=== PATIENT | female | born 1985 | race Caucasian/White ===

== ENCOUNTER 2021-05-24 23:57 | Emergency (ER) | payer OTHER, SELFPAY ==
[2021-05-25 00:01] VITALS: BP 115/76; PULSE 102; RESP 20; TEMP 36.2; O2SAT 100
--- NOTE | 2021-05-25 00:07 | ED.GENADULT ---
HPI - General Adult General Chief complaint: OB/Uterine Contractions Stated complaint: 3 months and bleeding Time Seen by Provider: 05/25/21 00:03 Source: patient Mode of arrival: ambulatory Limitations: no limitations History of Present Illness HPI narrative: eTresa is a 36 at approximately 3 months gestation (thinks LMP was February but is unsure) with a PMH of amphetamine abuse that presents with vaginal bleeding. It started and hour before coming in and is associated with abdominal cramping. She denies any diarrhea, vomiting, CP, SOB fevers or chills. Related Data Home Medications Medication Instructions Recorded Confirmed No Home Medications 05/25/21 05/25/21 Allergies Allergy/AdvReac Type Severity Reaction Status Date / Time No Known Allergies Allergy Verified 05/25/21 00:07 Review of Systems Constitutional: Constitutional: Reports no additional constitutional complaints Eyes: Eyes: Reports no additional eye complaints ENT: Reports system reviewed and no additional complaints, except as documented Cardiovascular: Cardiovascular: Reports no additional cardiovascular complaints Respiratory: Respiratory: Reports no additional respiratory complaints Gastrointestinal: Gastrointestinal: Reports no additional gastrointestinal complaints Genitourinary: Genitourinary: Reports no additional female genitourinary complaints Musculoskeletal: Musculoskeletal: Reports no additional musculoskeletal complaints Integumentary/Breasts: Skin/Breast: Reports system reviewed and no additional complaints, except as docu Neurologic: Reports system reviewed and no additional complaints, except as documented Psychiatric: Psychiatric: Reports no additional psychiatric complaints Endocrine: Endocrine: Reports no additional endocrine complaints Hematologic/Lymphatic: Hematologic/Lymphatic: Reports no additional hematologic/lymphatic complaints Allergic/Immunologic: Allergic/Immunologic: Reports no additional allergic/immunologic complaints Exam Const: General: no acute distress and alert Orientation/consciousness: patient oriented x3 Limitations: No altered mental status HENMT: Head: normal to inspection Other: atraumatic Eyes: Conjunctivae: conjunctivae normal Pupils: Equal, round and reactive pupils present Neck: Neck: normal visual inspection Chest: Chest palpation & inspection: normal inspection of the chest Resp: Effort & Inspection: normal respiratory effort Auscultation: clear to auscultation bilaterally Cardio: Rate: regular rate Rhythm: regular rhythm GI: Inspection: non-distended GI Palp: Yes Soft to palpation, No Tenderness to palpation present (GI) and No Guarding due to palpation present (GI) : General: Yes no CVA tenderness External Female Exam: normal external appearance Speculum Exam - Vagina: normal appearance of the vagina Speculum Exam - Cervix: Cervical os open (bleeding from within the uterus) and Other cervical findings present (copious amounts of blood in the vaginal vault ) Skin: General skin exam: normal color Rashes: no rashes Neuro: General: patient oriented x3, moves all extremities and no meningeal signs Extrem: General: normal to inspection Psych: Appearance: grossly normal Mental Status: mental status grossly normal Course Vital Signs Vital signs: Vital Signs Temperature 97.1 F L 05/25/21 00:01 Pulse Rate 102 H 05/25/21 00:01 Respiratory Rate 20 05/25/21 00:01 Blood Pressure 115/76 05/25/21 00:01 Pulse Oximetry 100 05/25/21 00:01 Temperature 97.1 F L 05/25/21 00:01 Pulse Rate 102 H 05/25/21 00:01 Respiratory Rate 20 05/25/21 00:01 Blood Pressure 115/76 05/25/21 00:01 Pulse Oximetry 100 05/25/21 00:01 Medical Decision Making Vital Signs Vital Signs: Vital Signs Temperature 97.1 F L 05/25/21 00:01 Pulse Rate 102 H 05/25/21 00:01 Respiratory Rate 05/25/21 00:01 Blood Pressure 115/76 05/25/21
--- NOTE | 2021-05-25 00:35 | PC.NURSE ---
Pt assisted to position for vaginal exam and collection of vaginal specimens. This RN in room c ERP Dr Perry at time of exam and assisted c collection of specimens. Pt shana procedure well.
[2021-05-25 00:43] LABS: Basophils Absolute Auto 0.06 K/mm3 (0.00-0.10); Basophils Percent Auto 0.7 % (0.0-1.0); Eosinophils Absolute Auto 0.21 K/mm3 (0.02-0.50); Eosinophils Percent Auto 2.6 % (1.0-6.0); Hematocrit 34.1 % (35.0-49.0); Immature Granulocyte Absolute 0.02 K/mm3 (0.00-0.00); Immature Granulocyte Percent A 0.2 % (0.0-0.0); Lymphocytes Percent Auto 29.6 % (18.0-42.0); Mean Corpuscular HGB Conc 35.2 g/dL (32.0-36.0); Mean Corpuscular Hemoglobin 30.8 pg (27.0-31.0); Mean Corpuscular Volume 87.7 fL (78.0-102.0); Mean Platelet Volume 8.8 fl (9.2-11.8); Monocytes Absolute Auto 0.55 K/mm3 (0.10-0.90); Monocytes Percent Auto 6.8 % (2.0-11.0); Neutrophils Absolute Auto 4.9 K/mm3 (1.7-7.2); Neutrophils Percent Auto 60.1 % (50.0-70.0); Platelet Count Result 278 K/mm3 (150-420); Red Blood Count 3.89 M/mm3 (4.20-5.40); White Blood Count 8.1 K/mm3 (4.8-10.8)
[2021-05-25 00:56] LABS: Prothrombin Time 10.4 Seconds (9.50-12.10)
[2021-05-25 01:00] LABS: Alanine Aminotransferase 26 U/L (14-59); Albumin Level 3.5 g/dL (3.4-5.0); Alkaline Phosphatase 70 U/L (46-116); Anion Gap 11 mmol/L (8-16); Aspartate Amino Transferase 13 U/L (15-37); Bilirubin,Total 0.2 mg/dL (0.00-1.00); Blood Urea Nitrogen 8 mg/dL (7-18); Calcium 9.1 mg/dL (8.5-10.1); Carbon Dioxide 26 mmol/L (21-32); Chloride 99 mmol/L (98-108); Estimated CRCL calculation 97 ml/min; Estimated Glomerular Filt Rate > 60; Glucose 101 mg/dL (70-99); Osmolality Calculated 280 mOsm/kg (285-295); Potassium 3.3 mmol/L (3.5-5.1); Sodium 136 mmol/L (136-145); Total Protein 7.3 g/dL (6.4-8.2)
[2021-05-25 01:26] VITALS: PULSE 90; RESP 16; TEMP 36.6; O2SAT 98
== END 2021-05-25 01:33 | disposition home or self-care (01) ==
PROVIDERS: Emergency Provider Family Medicine
DX: O03.9 Complete or unspecified spontaneous abortion without complication (principal)
CPT/HCPCS: 36415; 80053; 84702; 85025; 85610; 86850; 86900; 86901; 87491; 87591; 99284

== ENCOUNTER 2021-11-17 18:26 | Inpatient (IN) | payer OTHER, SELFPAY ==
[2021-11-17] VITALS (51 sets, daily range): BP systolic 85–124; BP diastolic 61–84; PULSE 48–92; RESP 12–22; TEMP 36.2–36.9; O2SAT 94–100; BMI 22.1
--- NOTE | 2021-11-17 19:09 | PM.IMHP ---
H&P: HPI History of Present Illness Date/Time: 11/17/21 19:09 Chief Complaint: leaking and contractions Narrative: She presented to labor and delivery with complaints of contractions that started approximately 3 oclock. She is 36 4/7 by stated EDC of Dec 11 by 27 and 32 week ultrasound. She started having small leaking at 8pm on 11/16 and increased this morning. She decided to come in when contraction pain increased. She states this is baby 6, prior to this child she had twins. She denies complications with prior pregnancies. She denies complications with this . She stated she has been getting care from early and has had several ultrasounds and states LMP early Nov and EDC Dec 11. She states was in [place] [facility] and it was done by primary care. She has a history of tobacco and marijuana use during . L and D at [facility] was called they said the only visit they had is when she was seen in there from [facility]. Did received her chart. labs reviewed. Bedside ultrasound performed by myself and confirmed footling breech. Review of Systems Review of Systems: All systems reviewed & are unremarkable except as noted in HPI and below Constitutional: Constitutional: Reports no additional constitutional complaints and Denies headache(s) Eyes: Eyes: Denies spots in vision ENT: Reports system reviewed and no additional complaints, except as documented and Denies headache(s) Cardiovascular: Cardiovascular: Denies chest pain and Denies dyspnea Respiratory: Respiratory: Denies dyspnea Gastrointestinal: Gastrointestinal: Reports no additional gastrointestinal complaints Genitourinary: Genitourinary: Reports amenorrhea Musculoskeletal: Musculoskeletal: Reports no additional musculoskeletal complaints Integumentary/Breasts: Skin/Breast: Denies breast mass and Denies rash Neurologic: Denies headache(s) Psychiatric: Psychiatric: Reports no additional psychiatric complaints [facility] Past Medical History Medical History and not yet delivered care insufficient Smoker Social History Social History Smoking packs per day: 0.5 Smoking cigarettes per day: 10.0 Years smoked: 21 Smoking pack-years: 10.50 Smoking status: Current every day smoker Tobacco type: cigarettes Second hand tobacco smoke exposure: Yes Substance use: current Last use: 11/16/21 Spiritual care concerns: No Meds Home Medications and Allergies Home Medications Medication Instructions Recorded Confirmed Type No Home Medications 05/25/21 05/25/21 History Allergies Allergy/AdvReac Type Severity Reaction Status Date / Time No Known Allergies Allergy Verified 05/29/21 08:11 Exam Const: General: no acute distress Eyes: General: appearance normal, both eyes and all related structures Resp: Effort & Inspection: normal respiratory effort Cardio: Rate: regular rate GI: Other: Gravid no fundal tenderness no right upper quadrant pain : External Female Exam: normal external appearance Other: cervix 6/70/blt, foot palpable, forebag palpable lisbeth 4-5 lbs brief bedside ultrasound confirmed breech, footling Skin: General skin exam: no rashes or lesions noted Neuro: Cognition (Neuro): normal cognition Extrem: General: normal to inspection Psych: Mental Status: mental status grossly normal Assessment and Plan Assessment and plan (1) premature rupture of membranes: Code(s): O42.919 - premature rupture of membranes, unspecified as to length of time between rupture and onset of labor, unspecified trimester Status: Acute Assessment and Plan: Admit IV antibiotic (2) Breech presentation: Code(s): O32.1XX0 - Maternal care for breech presentation, not applicable or unspecified Status: Acute Assessment and Plan: She was informed of need for c-sectio
--- NOTE | 2021-11-17 19:15 | WPDANESEPP ---
Anes - Eval Pre Procedure Procedure: C section Date/Time: 11/17/21 19:15 Surgeon: Zak Preop Diagnosis: Breech presentation Pre Op Diagnosis: labor Patient Data Age: 36 Gender: F Height: Weight: Allergies Allergy/AdvReac Type Severity Reaction Status Date / Time No Known Allergies Allergy Verified 05/29/21 08:11 Home Medications Medication Instructions Recorded Confirmed Type No Home Medications 05/25/21 05/25/21 History Laboratory Tests 11/17/21 11/17/21 11/17/21 19:04 19:04 19:04 WBC Pending RBC Pending Hgb Pending Hct Pending MCV Pending MCH Pending MCHC Pending RDW Pending Plt Count Pending MPV Pending Immature Gran % (Auto) Pending Neut % (Auto) Pending Lymph % (Auto) Pending [place] % (Auto) Pending Eos % (Auto) Pending Baso % (Auto) Pending Lymph # (Auto) Pending [place] # (Auto) Pending Eos # (Auto) Pending Baso # (Auto) Pending Abs Immat Gran (auto) Pending Absolute Neuts (auto) Pending Absolute Nucleated RBC Pending Nucleated RBC % Pending RPR Pending Hep Bs Antigen Pending HIV 1&2 Ab/P24 Ag 4thGn Rubella IgG Antibody Pending 11/17/21 19:04 WBC RBC Hgb Hct MCV MCH MCHC RDW Plt Count MPV Immature Gran % (Auto) Neut % (Auto) Lymph % (Auto) [place] % (Auto) Eos % (Auto) Baso % (Auto) Lymph # (Auto) [place] # (Auto) Eos # (Auto) Baso # (Auto) Abs Immat Gran (auto) Absolute Neuts (auto) Absolute Nucleated RBC Nucleated RBC % RPR Hep Bs Antigen HIV 1&2 Ab/P24 Ag 4thGn Pending Rubella IgG Antibody Patient hx anesthesia problems: none Family hx anesthesia problems: none Results Review: All pre-operative results and documents have been reviewed as part of the pre-operative evaluation. [facility] Past Medical History Medical History and not yet delivered care insufficient Smoker Exam Day of Procedure 11/17/21 19:15 Patient weight: normal Heart: regular rate and rhythm Lungs: clear to auscultation Neurological: alert and oriented
[2021-11-17 19:16] LABS: Basophils Absolute Auto 0.1 K/mm3 (0.0-0.1); Basophils Percent Auto 0.6 % (0.2-1.2); Eosinophils Absolute Auto 0.1 K/mm3 (0-0.3); Eosinophils Percent Auto 1.7 % (0-4.4); Hemoglobin 11.4 g/dL (12.0-15.0); Immature Granulocyte Absolute 0.02 K/mm3 (0.00-0.031); Immature Granulocyte Percent A 0.2 % (0-0.5); Immature Platelet Fraction Pct 7.1 % (0.9-11.2); Lymphocytes Absolute Auto 1.37 K/mm3 (0.9-3.2); Lymphocytes Percent Auto 16.3 % (18.3-44.2); Mean Corpuscular HGB Conc 33.5 g/dl (32-36); Mean Corpuscular Hemoglobin 29.6 pg (26-34); Mean Corpuscular Volume 88.3 fl (80-100); Monocytes Absolute Auto 0.4 K/mm3 (0.1-0.6); Monocytes Percent Auto 5.1 % (2.6-8.5); Neutrophils Absolute Auto 6.4 K/mm3 (1.3-6.7); Neutrophils Percent Auto 76.1 % (45.5-73.1); Platelet Count Result 193 k/mm3 (150-375); Red Blood Count 3.85 M/mm3 (4.2-5.4); Red Cell Distribution Width 12.7 % (11.5-14.5); White Blood Count 8.4 K/mm3 (4.5-10.0)
[2021-11-17] MEDS: ceFAZolin 2 GM/D5W 50 ML 2 GM/50 ML BAG IVPB (19:21)
[2021-11-17 20:04] LABS: Hepatitis B Surface Antigen Negative (Negative); Rubella IgG Antibody 33.3 IU/ML
[2021-11-17 20:08] LABS: HIV 1/2 Ab P24 Ag Result Negative (Negative)
--- NOTE | 2021-11-17 20:35 | W.PM.PROC2 ---
Procedure Note - Detailed Date of Procedure 12/03/21 Pre-op Diagnosis labor footling breech presentation premature rupture of membranes. Post-op Diagnosis Same Procedure Performed Primary low transverse section Surgeon Yousif Crespo MD Findings female [id number] footling breech, nuchal cord x 2 vigorously crying upon delivery apgars 9,9 Description of Procedure After informed consent, risks and benefits of the procedure was discussed with the patient. The patient was taken to the operating room where she was placed in the dorsal lithotomy position with leftward tilt. After the prior placed epidural anesthesia was found to be adequate, she was then prepped and draped in the usual sterile fashion. A Pfannenstiel skin incision was made with a scalpel and carried through to the underlying layer of fascia. The fascia was then nicked in the midline, extending bilaterally. The fascia was dissected off the rectus muscles bluntly and sharply, superiorly and inferiorly. The rectus muscles were in the midline, and peritoneum was identified and entered bluntly. The pelvic organs were visualized. The bladder blade was then inserted. The vesicouterine peritoneum was identified and the reflection was very inferior. A low transverse incision was made lower uterus above reflection with the scalpel and extended with bilateral index fingers in a crescent-shaped fashion. The feet were palpated at lower uterus and both feet delivered. The buttocks and arms were delivered. The head was delivered in a flex position. Two loose nuchal cords were manually reduced. The infant was vigorously crying. The cord was doubly cut and clamped. The infant was then handed off to the awaiting pediatric staff. The placenta was then delivered manually. The uterine cavity was sponge curretted. The uterus was then exteriorized. The uterine incision was then closed with 0 vicryl in a running locked fashion. A figure of eight of 0 vicryl at the right of incision was used for hemostasis. Hemostasis noted. A second layer of 0 vicryl was used in an imbricating fashion for hemostasis. A figure of eight stitch was used for added hemostasis on right of incision. Hemostasis obtained. The posterior cul de sac was irrigated. The uterus was then returned to the abdomen. Bilateral gutters were cleared off all clots and debris and irrigated. The uterine incision was noted to be hemostatic. The peritoneum was closed with 3.0 vicryl. The muscle bellies were inspected and noted to be hemostatic. The subfascial layer was noted to be hemostatic, and the fascia was closed with 0 Vicryl in a running fashion. The subcutaneous layer was then closed with 3-0 Vicryl in a subcutaneous fashion. The skin was closed with Ensorb hilda. Skin dermabond applied at incision. All instruments, needle, and lap counts were correct x3. The patient was taken to the recovery room in stable condition. Estimated Blood Loss 875 Drains No Packing No Pathology Yes (placenta and cord) Complications No immediate complications Condition Stable Disposition Floor [facility] Billing Surgery - Charge Forward: Surgery Billing
[2021-11-17 20:45] LABS: Barbiturate Screen Urine Negative (Negative); Benzodiazepines Screen Urine Negative (Negative)
[2021-11-17 20:52] LABS: Cannabinoid Screen Urine Positive (Negative); Cocaine Screen Urine Negative (Negative); Methadone Screen Urine Negative (Negative); Opiate Screen Urine Negative (Negative); Phencyclidine Screen Urine Negative (Negative)
[2021-11-17 21:10] LABS: Amphetamine Screen Urine Positive (Negative)
[2021-11-17] MEDS: MORPHINE SULFATE INJ (*CRX) 10 MG/ML AMP 2 MG IV PUSH ×2 (21:47→22:25)
[2021-11-17] MEDS: OXYTOCIN 30 UNITS/NS 500 ML 30 UNITS/500 ML BAG 125 UNITS IV CONT (21:47)
--- NOTE | 2021-11-17 21:50 | PC.NURSE ---
Patient had limited PNC in current r/t patient has been in snf. It is unknown if patient other children are at home with her currently. Patient denies history of substance abuse but her UDS on admission is positive for amphetamines and cannabis. The urine for this UDS was collected prior to any administration of medications at the hospital. Patient stated has been released from [facility] to deliver baby and is awaiting her snf sentencing.
--- NOTE | 2021-11-17 22:33 | LDADM ---
This patient, Teresa Manuel, was admitted to Labor/Delivery/Recovery 120 on 11/17/21 at 18:26. Plans for labor, pain management and were discussed with patient. Patient/family oriented to hospital policies and general routines including ID bracelet, bed and alarms, visiting hours, pain management, procedures, bathroom and other care routines, personal items, smoking policy, room service/diet and guest tray routines, infant security routines, and visiting hours. Patient/Family are encouraged to report perceived risks to care and to ask questions if they do not understand what they are told or what they should do. See OBIX for further documentation.
[2021-11-17] MEDS: HYDROcodone/acetaminophen (*CRX) 5-325 MG TABLET 1 TAB PO (23:38)
[2021-11-17] MEDS: IBUPROFEN 600 MG TABLET PO (23:39)
[2021-11-17] MEDS: SIMETHICONE 80 MG TAB.CHEW PO (23:39)
[2021-11-18] MEDS: DEXTROSE 5%/0.45% SOD CHL 1,000 ML 125 ML IV CONT (04:14)
[2021-11-18 04:15] VITALS: BP 103/58; PULSE 81; RESP 18; TEMP 36; O2SAT 98
[2021-11-18 05:06] LABS: Basophils Percent Auto 0.3 % (0.2-1.2); Eosinophils Absolute Auto 0.1 K/mm3 (0-0.3); Eosinophils Percent Auto 1.3 % (0-4.4); Hematocrit 30.2 % (37.0-47.0); Hemoglobin 10.1 g/dL (12.0-15.0); Immature Granulocyte Absolute 0.04 K/mm3 (0.00-0.031); Immature Granulocyte Percent A 0.4 % (0-0.5); Lymphocytes Percent Auto 9.4 % (18.3-44.2); Mean Corpuscular HGB Conc 33.4 g/dl (32-36); Mean Corpuscular Hemoglobin 29.6 pg (26-34); Mean Corpuscular Volume 88.6 fl (80-100); Mean Platelet Volume 9.8 fl (7.4-10.4); Monocytes Absolute Auto 0.4 K/mm3 (0.1-0.6); Monocytes Percent Auto 4.2 % (2.6-8.5); Neutrophils Absolute Auto 8.1 K/mm3 (1.3-6.7); Neutrophils Percent Auto 84.4 % (45.5-73.1); Platelet Count Result 188 k/mm3 (150-375); Red Blood Count 3.41 M/mm3 (4.2-5.4); Red Cell Distribution Width 12.7 % (11.5-14.5); White Blood Count 9.6 K/mm3 (4.5-10.0)
[2021-11-18] MEDS: IBUPROFEN 600 MG TABLET PO ×2 (07:04→13:19)
[2021-11-18] MEDS: HYDROcodone/acetaminophen (*CRX) 5-325 MG TABLET 1 TAB PO ×2 (07:05→13:19)
[2021-11-18 07:35] VITALS: BP 99/69; PULSE 86; RESP 16; TEMP 36.2; O2SAT 98
--- NOTE | 2021-11-18 07:40 | WPDANLDPN2 ---
Anes-Prog Note L&D Date/Time: 11/18/21 07:40 Comfortable throughout: section Neuraxial method: spinal Neuro status: Neuro function grossly intact. Vital Signs: Last Vital Signs Temp 36.0 C L 11/18/21 04:15 Pulse 81 11/18/21 04:15 Resp 18 11/18/21 04:15 BP 103/58 L 11/18/21 04:15 Pulse Ox 98 11/18/21 04:15 O2 Del Method Room Air 11/18/21 04:15 Pain score (VAS): 2 I/O: Intake & Output 11/17/21 11/17/21 11/18/21 15:59 23:59 07:59 Intake Total 300 Output Total 175 650 Balance -175 -350 Patient feedback: Patient satisfied with anesthetic care.
--- NOTE | 2021-11-18 07:40 | WPDANLDNPN2 ---
Anes-Prog Note L&D-Neuraxial Date/Time: 11/18/21 07:40 Neuraxial medications: intrathecal PF morphine Opiod-related complaints: pruritis Patient feedback: Patient satisfied with post-operative pain management.
[2021-11-18 07:51] LABS: Rapid Plasma Reagin Non-Reactive (NonReactive)
--- NOTE | 2021-11-18 10:00 | PC.NURSE ---
[facility] correctional counselor/case manager, Rianna Lyle, called in to check on the patient. She states that the patient does not have custody of any of her children and she will be call in this delivery and baby to the hotline with [facility] to add to the existing case. Transferred the call to [place] in Care coordination.
--- NOTE | 2021-11-18 10:33 | PM.OBPNVD ---
OB - PN: Subj Subjective Date/time seen: 11/18/21 10:33 Doing well this AM. Pain reasonably controlled with medication. Denies any headache, chest pain, SOB, N/V. Tolerating PO diet. Nicole still in place. Limited ambulation. No flatus yet. OB - PN: Obj Data Labs CBC & Chem 7: 11/18/21 04:12 Labs: Laboratory Results - last 24 hr 11/17/21 11/17/21 11/17/21 19:04 19:04 19:04 WBC 8.4 RBC 3.85 L Hgb 11.4 L Hct 34.0 L MCV 88.3 MCH 29.6 MCHC 33.5 RDW 12.7 Plt Count 193 MPV 11.0 H Immature Gran % (Auto) 0.2 Neut % (Auto) 76.1 H Lymph % (Auto) 16.3 L [place] % (Auto) 5.1 Eos % (Auto) 1.7 Baso % (Auto) 0.6 Lymph # (Auto) 1.37 [place] # (Auto) 0.4 Eos # (Auto) 0.1 Baso # (Auto) 0.1 Abs Immat Gran (auto) 0.02 Absolute Neuts (auto) 6.4 Absolute Nucleated RBC 0.0 Nucleated RBC % 0.0 % Immature Plt Fraction 7.1 Urine Opiates Screen Urine Methadone Screen Ur Barbiturates Screen Ur Phencyclidine Scrn Ur Amphetamine Screen U Benzodiazepines Scrn Urine Cocaine Screen U Cannabinoids Screen RPR Non-reactive Hep Bs Antigen Negative HIV 1&2 Ab/P24 Ag 4thGn Rubella IgG Antibody 33.3 Blood Type Antibody Screen 11/17/21 11/17/21 11/17/21 19:04 19:05 20:16 WBC RBC Hgb Hct MCV MCH MCHC RDW Plt Count MPV Immature Gran % (Auto) Neut % (Auto) Lymph % (Auto) [place] % (Auto) Eos % (Auto) Baso % (Auto) Lymph # (Auto) [place] # (Auto) Eos # (Auto) Baso # (Auto) Abs Immat Gran (auto) Absolute Neuts (auto) Absolute Nucleated RBC Nucleated RBC % % Immature Plt Fraction Urine Opiates Screen Negative Urine Methadone Screen Negative Ur Barbiturates Screen Negative Ur Phencyclidine Scrn Negative Ur Amphetamine Screen Positive A U Benzodiazepines Scrn Negative Urine Cocaine Screen Negative U Cannabinoids Screen Positive A RPR Hep Bs Antigen HIV 1&2 Ab/P24 Ag 4thGn Negative Rubella IgG Antibody Blood Type O Positive Antibody Screen Negative 11/18/21 04:12 WBC 9.6 RBC 3.41 L Hgb 10.1 L Hct 30.2 L MCV 88.6 MCH 29.6 MCHC 33.4 RDW 12.7 Plt Count 188 MPV 9.8 Immature Gran % (Auto) 0.4 Neut % (Auto) 84.4 H Lymph % (Auto) 9.4 L [place] % (Auto) 4.2 Eos % (Auto) 1.3 Baso % (Auto) 0.3 Lymph # (Auto) 0.90 [place] # (Auto) 0.4 Eos # (Auto) 0.1 Baso # (Auto) 0.0 Abs Immat Gran (auto) 0.04 H Absolute Neuts (auto) 8.1 H Absolute Nucleated RBC 0.0 Nucleated RBC % 0.0 % Immature Plt Fraction Urine Opiates Screen Urine Methadone Screen Ur Barbiturates Screen Ur Phencyclidine Scrn Ur Amphetamine Screen U Benzodiazepines Scrn Urine Cocaine Screen U Cannabinoids Screen RPR Hep Bs Antigen HIV 1&2 Ab/P24 Ag 4thGn Rubella IgG Antibody Blood Type Antibody Screen OB - PN A/P Assessment and Plan (1) Delivery by section using transverse incision of lower segment of uterus: Code(s): O82 - Encounter for delivery without indication Status: Acute Assessment and Plan: POD#1 doing well continue routine postoperative care lj nicole this afternoon encourage ambulation and use of IS Time Spent With Patient Time: Total time spent is greater than 50% in coordination of care (as documented) at patient's floor/unit and/or counseling patient: Review of Systems Review of Systems: All systems reviewed & are unremarkable except as noted in HPI and below Exam Const: General: cooperative, healthy appearing, comfortable and no acute distress Other: sitting in chair GI: Inspection: non-distended GI Palp: Yes abdominal tenderness (appropriately tender) and Yes Soft to palpation Other: incision covered with bandage, bandage c/d/i Extrem: Right lower extremity: no edema Left lower extremity: no edema Other
[2021-11-18 12:07] VITALS: BP 104/64; PULSE 83; RESP 16; TEMP 36.4; O2SAT 98
--- NOTE | 2021-11-18 14:11 | PCCCNOTE ---
Received referral. Met with pt. She indicates living with a friend currently. She was released from [facility] on 10/23/21 and is awaiting court date for charges of possession. She was positive for marijuana and amphetamines on UDS. Baby girl is positive for amphetamines on UDS. Cord blood is pending. Pt. confirms marijuana use, she obtains it socially. She can not indicate reason for positive amphetamines stating not having used for awhile. She indicates having seen primary care physician a few times during but has not had any other care. Baby girl is her child #6. Other 5 children have been placed with other family/foster care per [facility] involvement. Reported pt. situation to [facility]. Intake#[id number]. Investigation initiated. Have spoke to pt. Rianna's previous correctional case manager at [phone]; [facility] [phone] and [facility] at [phone]. Baby girl to be taken into protective custody. Deya to be present at hospital this afternoon. EDMUND Vasquez notified.
[2021-11-18 16:15] VITALS: BP 106/70; PULSE 85; RESP 16; TEMP 36.6; O2SAT 98
[2021-11-18] MEDS: HYDROcodone/acetaminophen (*CRX) 10-325 MG TABLET 1 TAB PO (17:29)
[2021-11-18] MEDS: DOCUSATE SODIUM 100 MG CAPSULE PO (17:30)
[2021-11-18 20:11] VITALS: BP 109/66; PULSE 80; RESP 16; TEMP 36.6
[2021-11-19 08:10] VITALS: BP 109/60; PULSE 80; RESP 16; TEMP 37.2; O2SAT 96
[2021-11-19] MEDS: DOCUSATE SODIUM 100 MG CAPSULE PO ×2 (09:00→16:22)
--- NOTE | 2021-11-19 09:20 | PM.OBPNVD ---
OB - PN: Subj Subjective Date/time seen: 11/19/21 09:20 Patient doing well. Pain reasonably controlled with medication. Denies any headache, chest pain, SOB, N/V. Tolerating PO diet. Ambulating without difficulty. Minimal lochia. Voiding well. No flatus yet, however, reports discomfort from gas pressure. OB - PN: Obj Data Labs CBC & Chem 7: 11/18/21 04:12 OB - PN A/P Assessment and Plan (1) Delivery by section using transverse incision of lower segment of uterus: Code(s): O82 - Encounter for delivery without indication Status: Acute Assessment and Plan: POD#2 doing well continue routine postoperative care simethicone for gas discomfort encourage ambulation and use of IS anticipate dc home tomorrow Time Spent With Patient Time: Total time spent is greater than 50% in coordination of care (as documented) at patient's floor/unit and/or counseling patient: Review of Systems Review of Systems: All systems reviewed & are unremarkable except as noted in HPI and below Exam Const: General: cooperative, healthy appearing, comfortable and no acute distress GI: Inspection: non-distended GI Palp: Yes abdominal tenderness (appropriately tender) and Yes Soft to palpation Other: inc covered with bandage, bandage c/d/i Extrem: Right lower extremity: no edema Left lower extremity: no edema Other: no calf tenderness
[2021-11-19 11:00] VITALS: PULSE 80; RESP 16; O2SAT 96
[2021-11-19] MEDS: IBUPROFEN 600 MG TABLET PO ×2 (11:32→16:21)
[2021-11-19] MEDS: HYDROcodone/acetaminophen (*CRX) 10-325 MG TABLET 1 TAB PO (11:32)
[2021-11-19] MEDS: SIMETHICONE 80 MG TAB.CHEW PO ×2 (11:33→16:20)
[2021-11-19 19:20] VITALS: BP 113/62; PULSE 88; RESP 16; TEMP 36.4
[2021-11-20] MEDS: HYDROcodone/acetaminophen (*CRX) 5-325 MG TABLET 1 TAB PO (05:27)
[2021-11-20] MEDS: IBUPROFEN 600 MG TABLET PO ×2 (05:27→11:21)
[2021-11-20 07:35] VITALS: BP 117/61; PULSE 79; RESP 18; TEMP 37; O2SAT 100
--- NOTE | 2021-11-20 09:37 | P.PNOB_ITS ---
OB - PN: Subj Subjective Date/time seen: 11/20/21 09:37 Patient doing well. Pain reasonably controlled with me dication. Denies any headache, chest pain, shortness of breath, nausea, or vomiting. Tolerating PO diet. Minimal lochia. Ambulating without difficulty. Voiding well. Passing flatus. OB - PN: Obj Data Labs CBC & Chem 7: 11/18/21 04:12 OB - PN A/P Assessment and Plan (1) Delivery by section using transverse incision of lower segment of uterus: Code(s): O82 - Encounter for delivery without indication Status: Acute Assessment and Plan: POD#3 doing well dc home in stable condition emergency precautions reviewed f/u in 2 weeks for postoperative visit Time Spent With Patient Time: Total time spent is greater than 50% in coordination of care (as documented) at patient's floor/unit and/or counseling patient: Review of Systems Review of Systems: All systems reviewed & are unremarkable except as noted in HPI and below Exam Const: General: cooperative, healthy appearing, comfortable and no acute distress GI: Inspection: non-distended GI Palp: Yes Soft to palpation and No Tenderness to palpation present (GI) Other: inc c/d/i Extrem: Right lower extremity: no edema Left lower extremity: no edema Other: no calf tenderness
--- NOTE | 2021-11-20 09:39 | PM.OBDSVD ---
DS: Admitting Diagnosis Discharge Date 11/20/21 Admitting Diagnosis labor Breech presentation OB - DS: Summary OB Procedures : None OB Procedures Intrapartum: OB Procedures: : None Peripartum Data Procedures: Procedures Operation Date: 11/17/21 20:55 Actual Procedure Side Surgeon p Section Yousif Crespo MD Time Spent with Patient Time attestation: Total time spent providing and/or coordinating discharge services: DS: Data Data Completed and Pending Pending studies at discharge: Pending at discharge 11/17/21 19:46 Surgical [PTH] Routine Discharge Plan Discharge Attending physician on discharge: Marsha Rosas Discharging Clinician: Marsha Rosas Anticipated Discharge Date/Time: 11/20/21 09:39 Patient Disposition: Home, Self-Care Activity: as tolerated and pelvic rest Diet: regular Discharge Instructions: Call office ([phone]) to schedule the following appointments: 1. Postoperative/wound check in 2 weeks. 2. visit in 4-6 weeks. You may take Ibuprofen 600mg every 6 hours as needed for pain. I have sent a prescription for a stronger pain medication, [place], to your pharmacy. You may take this as prescribed for breakthrough pain (pain that is not controlled with Ibuprofen). No driving for at least two weeks. You also may not drive while taking narcotics. Pain medication may make you constipated. It may be helpful to take an keqj-ryy-vkimsow stool softener, such as Colace and/or Senokot, along with the pain medication to help lessen constipation. Call office or go to ED for pain not controlled with medication, headache, chest pain, shortness of breath, fever, chills, persistent nausea or vomiting, severe abdominal pain, heavy vaginal bleeding >2 pads/hour, foul vaginal discharge or odor, any redness near incision, severe pain, pus or drainage from incision site, or problems with your breasts. Education: Mom and Baby Guide Given to: Mother Follow-Up: Call your delivering provider's office for an appointment to be seen in:1 week for incision check and 6 Weeks for regular exam You should come to the [facility] for the follow-up appointment. Appointment Date/Time: November 21, 2021 at 11:00 am What to expect at your follow-up visit: Blood Pressure Check, Physical Assessment Call [phone] if you are unable to keep your appointment time. BREAST CARE: * Wear a snug supportive bra. * For engorgement discomfort: Bottle Feeding: * May apply ice packs * No stimulation to breasts. Do not try to pump milk this will only increase the amount of milk your body makes ABDOMINAL INCISION: (if applicable) * Allow incision to air dry * Do NOT use lotions for powders on your incision * When showering, allow soap and water to run over the incision, but do not scrub incision EPISIOTOMY/PERINEAL CARE: * Until bleeding stops, use your abdullahi bottle after urinating * Change your pad frequently throughout the day * No tub baths until seen by your physician - You may shower ACTIVITY: * Rest as much as possible. * Do not exercise or lift anything heavier than 10 pounds for 2 weeks * Avoid stairs or driving as much as possible. * Do not put anything into the vagina. No douching, tampons, or sexual activity until seen by physician. NOTIFY PHYSICIAN IF YOU HAVE ANY QUESTIONS OR IF ANY OF THE FOLLOWING SYMPTOMS OCCUR: * If your incision becomes red, swollen, or more painful than what you have experienced in the hospital. * If your vaginal bleeding becomes foul smelling. * If your vaginal bleeding becomes more heavy than a period or if your bleeding changes from pink to bright red. However, you may pass an occasional walnut-sized clot once or twice for the first week . * If you experience a sharp, shooting pain in your calves. * If you discover a hard, redde
[2021-11-20 10:07] VITALS: PULSE 79; RESP 18; O2SAT 100
[2021-11-20] MEDS: SIMETHICONE 80 MG TAB.CHEW PO (11:21)
[2021-11-20] MEDS: HYDROcodone/acetaminophen (*CRX) 10-325 MG TABLET 1 TAB PO (11:22)
[2021-11-20] MEDS: DOCUSATE SODIUM 100 MG CAPSULE PO (11:22)
--- NOTE | 2021-11-20 12:47 | PC.NURSE ---
[phone] Called to patient room stating that her ride will be here soon. Questions regarding security tag indicate patient assumes that baby will be discharged with her. Confirmed that Deya Mari from [facility] has spoken with her. When ask what her understanding regarding discharge of infant is from the meeting, mother says she doesn't know and that [facility] gave her a court date and she thought she would hear back from [facility]. I told her that i would have Deya call her on her cell phone. Informed Deya of above conversation, cell phone number provided. I informed mother that i would be taking baby to the nursery for an additional test. Deya then confirmed to me by phone that she had spoken with mother and that mother could come to say good bye to baby in the nursery. Mother did so, was given a jovita blanket blanket as a memento and left the nursery in tears.
== END 2021-11-20 11:48 | disposition home or self-care (01) | DRG 540 ==
LOC: ANHLDR 18:51 → ANHOB2 23:52 → ANHLDR 11-20 15:02
PROVIDERS: Admitting Provider Obstetrics & Gynecology; Visit Provider Student in an Organized Health Care Education/Training Program
PROC: 10D00Z1 Extraction of Products of Conception, Low, Open Approach (ICD-10-PCS; CPT 59514; principal; 2021-11-17 20:55)
DX: O32.8XX0 Maternal care for other malpresentation of fetus, not applicable or unspecified (principal); O99.334 Smoking (tobacco) complicating childbirth; F17.210 Nicotine dependence, cigarettes, uncomplicated; O42.913 Preterm premature rupture of membranes, unspecified as to length of time between rupture and onset of labor, third trimester; O69.81X0 Labor and delivery complicated by cord around neck, without compression, not applicable or unspecified; O76 Abnormality in fetal heart rate and rhythm complicating labor and delivery; Z3A.36 36 weeks gestation of pregnancy; Z37.0 Single live birth
CPT/HCPCS: 36415; 80307; 85025; 85055; 86592; 86703; 86762; 86850; 86900; 86901; 87340; 88307; A9270; G0432; J0690; J2210; J2250; J2270; J2274; J2405; J2590; J2704